=== PATIENT | male | born 1970 | race Caucasian/White ===

== ENCOUNTER → 2016-10-30 | Outpatient (CLI) | payer OTHER ==
[2016-10-30 09:07] LABS: HEMOGLOBIN 16.1 gm/dl (14.0-17.5); RED BLOOD COUNT 4.79 M/UL (4.20-5.50); WHITE BLOOD COUNT 9.3 K/UL (4.5-11.0)
[2016-10-30 09:16] LABS: BUN/CREATININE RATIO 10 (0-10)
== END ==
LOC: OPSV2 10-24 09:00
PROVIDERS: Orthopaedic Surgery
DX: Z01.810 Encounter for preprocedural cardiovascular examination (principal); Z01.812 Encounter for preprocedural laboratory examination; Z01.818 Encounter for other preprocedural examination; M75.02 Adhesive capsulitis of left shoulder
CPT/HCPCS: 36415; 71020; 80048; 85025; 93005

== ENCOUNTER 2020-04-18 14:06 | Inpatient (IN) | payer OTHER ==
[~2020-04-18] VITALS: Ht 182.9 cm; Wt 68.0 kg
[~2020-04-18 14:06] MED LIST: NORCO 10-325 T1 EACH PO; SIMVASTATIN20 MG PO; TYLENOL PM EX-1 EACH PO
[2020-04-18 15:32] LABS: BUN/CREATININE RATIO 6 (0-10)
[2020-04-18 16:04] LABS: HEMOGLOBIN 7.3 gm/dl (14.0-17.5); RED BLOOD COUNT 2.17 M/UL (4.20-5.50); WHITE BLOOD COUNT 28.3 K/UL (4.5-11.0)
[2020-04-19 05:54] LABS: HEMOGLOBIN 10.5 gm/dl (14.0-17.5); RED BLOOD COUNT 3.31 M/UL (4.20-5.50); WHITE BLOOD COUNT 33.6 K/UL (4.5-11.0)
[2020-04-19 06:17] LABS: BUN/CREATININE RATIO 4 (0-10)
== END 2020-04-19 20:10 | disposition short-term general hospital (02) | DRG 871 ==
LOC: ER1 14:06 → CDU 17:41 → CCU 21:41
PROVIDERS: Emergency Medicine; ADMIT Internal Medicine Infectious Disease
PROC: 05HM33Z Insertion of Infusion Device into Right Internal Jugular Vein, Percutaneous Approach (ICD-10-PCS; principal; 2020-04-18)
PROC: B543ZZA Ultrasonography of Right Jugular Veins, Guidance (ICD-10-PCS; 2020-04-18)
PROC: 30233N1 Transfusion of Nonautologous Red Blood Cells into Peripheral Vein, Percutaneous Approach (ICD-10-PCS; 2020-04-18)
PROC: 3E033XZ Introduction of Vasopressor into Peripheral Vein, Percutaneous Approach (ICD-10-PCS; 2020-04-18)
DX: A41.9 Sepsis, unspecified organism (principal); R65.21 Severe sepsis with septic shock; I26.99 Other pulmonary embolism without acute cor pulmonale; J18.9 Pneumonia, unspecified organism; R57.1 Hypovolemic shock; G93.41 Metabolic encephalopathy; C34.12 Malignant neoplasm of upper lobe, left bronchus or lung; C79.31 Secondary malignant neoplasm of brain; F10.239 Alcohol dependence with withdrawal, unspecified; I82.412 Acute embolism and thrombosis of left femoral vein; R64 Cachexia; D63.8 Anemia in other chronic diseases classified elsewhere; F17.210 Nicotine dependence, cigarettes, uncomplicated; E83.42 Hypomagnesemia; Z66 Do not resuscitate; E87.6 Hypokalemia; G31.2 Degeneration of nervous system due to alcohol; D69.6 Thrombocytopenia, unspecified; K70.30 Alcoholic cirrhosis of liver without ascites; Z20.822 Contact with and (suspected) exposure to COVID-19; Z79.899 Other long term (current) drug therapy; Z80.1 Family history of malignant neoplasm of trachea, bronchus and lung; Z68.20 Body mass index [BMI] 20.0-20.9, adult; E86.0 Dehydration
CPT/HCPCS: 36415; 36430; 51702; 70450; 71045; 80053; 82140; 82150; 82550; 82553; 82607; 82746; 83605; 83690; 83735; 83874; 84132; 84484; 85025; 85379; 85610; 85730; 86850; 86900; 86901; 86920; 87635; 93005; 94640; 94760; 96365; 96368; 99285; C9113; G0480; J2060; J2543; J3370; J3480; J7030; J7070; P9016; Q9967